=== PATIENT | male | born 1955 | race African-American/Black ===

== ENCOUNTER 2025-08-28 16:32 | Inpatient (IN) | payer MEDICARE, OTHER ==
[~2025-08-28] VITALS: Ht 170.2 cm; Wt 67.6 kg
[~2025-08-28 16:32] MED LIST: HYDR30CR79 TP
[2025-08-28] MEDS: CEFEPIME 1 GM in IV D5W 50 ML IV ONE (17:20)
[2025-08-28 17:31] LABS: RED BLOOD CELL COUNT(AUTO) 4.24 MIL/uL (4.5-6.0); RED CELL DISTRIBUTION WIDTH 15.5 % (11.5-15.0); WHITE BLOOD COUNT (AUTO) 7.0 K/uL (4.3-11.0)
[2025-08-28 17:33] LABS: PLATELET COUNT (AUTO) 186 K/uL (150-450)
[2025-08-28 17:43] LABS: CALCIUM, SERUM 8.8 mg/dL (8.5-10.1); CREATININE 1.6 mg/dL (0.6-1.3); SODIUM SERUM 140 mmol/L (136-145); UREA NITROGEN, BLOOD 22 mg/dL (7-18)
[2025-08-28 17:48] LABS: INR 1.05 (0.91-1.10)
[2025-08-28 17:49] LABS: ASPARTATE AMINOTRANSFERASE 13 U/L (15-37); TOTAL PROTEIN, SERUM 7.9 g/dL (6.4-8.2)
[2025-08-28] MEDS: VANCOMYCIN 1 GM in IV D5W 250 ML IV ONE (17:50)
[2025-08-28 17:53] LABS: LACTIC ACID 0.7 mmol/L (0.4-2.0)
[2025-08-28] MEDS ORDERED: L. A1TAB10 PO (18:43)
[2025-08-28] MEDS ORDERED: ACET-73 PO (18:43)
[2025-08-28] MEDS ORDERED: MULT-213 PO (18:43)
[2025-08-28] MEDS ORDERED: CARV25TA2 PO (18:43)
[2025-08-28] MEDS ORDERED: CHOL100062 PO (18:43)
[2025-08-28] MEDS ORDERED: CYAN500T15 PO (18:43)
[2025-08-28] MEDS ORDERED: AMIN30LI27 PO (18:43)
[2025-08-28] MEDS ORDERED: ACET325T53 PO (18:43)
[2025-08-28] MEDS ORDERED: LISI20TA30 PO (18:43)
[2025-08-28] MEDS ORDERED: FERR324T4 PO (18:43)
[2025-08-28] MEDS ORDERED: AMLO-213 PO (18:43)
[2025-08-28] MEDS ORDERED: LEVO25TA9 PO (18:43)
[2025-08-28] MEDS ORDERED: ASCO500T10 PO (18:43)
[2025-08-28] MEDS ORDERED: SENN-261 PO (18:43)
[2025-08-28 19:30] VITALS: O2SAT 97
[2025-08-28] MEDS ORDERED: Z GUARD REMEDY 4 OZ OINT TP PRN (20:00)
[2025-08-28] MEDS ORDERED: ACETAMINOPHEN 325 MG TABLET PO PRN (20:00)
[2025-08-28] MEDS ORDERED: DOSING PER PHARMACY-VANCOMYCIN IV XX PRN (20:00)
[2025-08-28] MEDS ORDERED: HYDROCODONE/APAP 5/325MG TABLET PO PRN (20:00)
[2025-08-28] MEDS ORDERED: ONDANSETRON HCL/PF 4 MG/2 ML VIAL IVP PRN (20:00)
[2025-08-28] MEDS ORDERED: DEXTROSE 50%-WATER 50 ML DISP.SYRIN IV PRN (22:30)
[2025-08-28 22:58] VITALS: BP 139/79; TEMP 98.1; O2SAT 100
[2025-08-28 23:33] LABS: APPEARANCE,URINE CLEAR (CLEAR); BLOOD, URINE NEGATIVE Ery/uL (NEGATIVE); LEUKOCYTE ESTERASE ,URINE NEGATIVE (NEGATIVE); NITRITE, URINE NEGATIVE (NEGATIVE); UGLUCOSE NEGATIVE (NEGATIVE)
[2025-08-28 23:44] LABS: ADD URINE CULTURE NO; CALCIUM OXALATE CRYSTALS,UR Rare /HPF (None Seen); SQUAMOUS EPITHELIAL CELL,UR 0-2 /HPF (None Seen)
[2025-08-29] MEDS: BLOOD SUGAR DIAGNOSTIC 1 EACH STRIP IN SCH (06:33)
[2025-08-29] MEDS: INSULIN REGULAR, HUMAN 100 UNIT/ML 3 ML VIAL SQ PRN (06:33)
[2025-08-29] MEDS: LEVOTHYROXINE SODIUM 25 MCG TABLET PO SCH (06:37)
[2025-08-29] MEDS: PANTOPRAZOLE 40 MG TABLET.DR PO SCH (06:37)
[2025-08-29 06:40] LABS: PLATELET COUNT (AUTO) 185 K/uL (150-450); RED BLOOD CELL COUNT(AUTO) 4.06 MIL/uL (4.5-6.0); RED CELL DISTRIBUTION WIDTH 15.6 % (11.5-15.0); WHITE BLOOD COUNT (AUTO) 7.5 K/uL (4.3-11.0)
[2025-08-29 07:47] LABS: CALCIUM, SERUM 9.2 mg/dL (8.5-10.1); CREATININE 1.2 mg/dL (0.6-1.3); PHOSPHORUS 2.8 mg/dL (2.5-4.9); SODIUM SERUM 142.0 mmol/L (136-145); UREA NITROGEN, BLOOD 20.0 mg/dL (7-18)
[2025-08-29 08:00] VITALS: BP 151/83; TEMP 97.9; O2SAT 99
[2025-08-29] MEDS: CEFTRIAXONE 2 G in IV D5W 100 ML IV SCH (08:23)
[2025-08-29 08:45] LABS: LDL 81.0 mg/dL (0-99)
[2025-08-29] MEDS: CARVEDILOL 12.5 MG TABLET PO SCH (09:00)
[2025-08-29] MEDS: MULTIVIT W/MINERALS 1 TAB TABLET PO SCH (09:51)
[2025-08-29] MEDS: SENNOSIDES 8.6 MG TABLET PO SCH (09:51)
[2025-08-29] MEDS: ASCORBIC ACID 500 MG TABLET PO SCH (09:51)
[2025-08-29] MEDS: CHOLECALCIFEROL 1,000 UNIT TABLET (VIT D3) PO SCH (09:51)
[2025-08-29] MEDS: FERROUS SULFATE (325 MG) 325 MG/TAB TABLET PO SCH (09:51)
[2025-08-29] MEDS: ACIDOPHILUS/BULGARICUS 1 EACH TAB.CHEW PO SCH (09:52)
[2025-08-29] MEDS: CYANOCOBALAMIN 500 MCG TABLET PO SCH (09:52)
[2025-08-29] MEDS: LISINOPRIL (20MG) 20 MG TABLET PO SCH (09:54)
[2025-08-29] MEDS: AMLODIPINE BESYLATE 10 MG TABLET PO SCH (09:55)
[2025-08-29] MEDS: PROSTAT (PYXIS) 30 ML UDC PO SCH (09:56)
[2025-08-29] MEDS: VANCOMYCIN HCL 1.25 GM in IV D5W 250 ML IV SCH (17:13)
[2025-08-29 20:00] VITALS: BP 114/69; TEMP 97.7; O2SAT 97
[2025-08-30 07:30] VITALS: BP 133/81; TEMP 98.2; O2SAT 98
[2025-08-30 16:00] VITALS: BP 112/75; TEMP 98.1; O2SAT 98
[2025-08-30 16:11] LABS: PLATELET COUNT (AUTO) 178 K/uL (150-450); RED BLOOD CELL COUNT(AUTO) 3.82 MIL/uL (4.5-6.0); RED CELL DISTRIBUTION WIDTH 15.3 % (11.5-15.0); WHITE BLOOD COUNT (AUTO) 5.5 K/uL (4.3-11.0)
[2025-08-30 16:38] LABS: ASPARTATE AMINOTRANSFERASE 8 U/L (15-37); CALCIUM, SERUM 8.5 mg/dL (8.5-10.1); CREATININE 1.6 mg/dL (0.6-1.3); PHOSPHORUS 3.7 mg/dL (2.5-4.9); SODIUM SERUM 139 mmol/L (136-145); TOTAL PROTEIN, SERUM 7.1 g/dL (6.4-8.2); UREA NITROGEN, BLOOD 22 mg/dL (7-18)
[2025-08-30 16:40] LABS: CREATINE KINASE, TOTAL 51 U/L (39-308)
[2025-08-30 20:00] VITALS: BP 112/73; TEMP 98.2; O2SAT 96
[2025-08-31 09:03] VITALS: BP 125/78; TEMP 98; O2SAT 100
[2025-08-31 10:07] LABS: PTH, INTACT 13 pg/mL (15-65)
[2025-08-31 16:16] VITALS: BP 118/83; TEMP 97.5; O2SAT 99
[2025-08-31 16:46] LABS: PLATELET COUNT (AUTO) 196 K/uL (150-450); RED BLOOD CELL COUNT(AUTO) 4.09 MIL/uL (4.5-6.0); RED CELL DISTRIBUTION WIDTH 15.7 % (11.5-15.0); WHITE BLOOD COUNT (AUTO) 6.9 K/uL (4.3-11.0)
[2025-08-31 17:00] VITALS: BP 108/63
[2025-08-31 17:03] LABS: ASPARTATE AMINOTRANSFERASE 10 U/L (15-37); CALCIUM, SERUM 8.8 mg/dL (8.5-10.1); CREATININE 1.8 mg/dL (0.6-1.3); PHOSPHORUS 3.1 mg/dL (2.5-4.9); SODIUM SERUM 141 mmol/L (136-145); TOTAL PROTEIN, SERUM 7.3 g/dL (6.4-8.2); UREA NITROGEN, BLOOD 24 mg/dL (7-18)
== END 2025-08-31 17:30 | DRG 300 ==
LOC: ER 16:39 → TELE1 19:13 → TELE 20:01 → MED 20:31
PROVIDERS: ADMIT Nurse Practitioner Family
DX: I87.313 Chronic venous hypertension (idiopathic) with ulcer of bilateral lower extremity (principal); E44.0 Moderate protein-calorie malnutrition; L97.812 Non-pressure chronic ulcer of other part of right lower leg with fat layer exposed; L97.828 Non-pressure chronic ulcer of other part of left lower leg with other specified severity; N17.9 Acute kidney failure, unspecified; E11.621 Type 2 diabetes mellitus with foot ulcer; K21.9 Gastro-esophageal reflux disease without esophagitis; N18.30 Chronic kidney disease, stage 3 unspecified; I13.10 Hypertensive heart and chronic kidney disease without heart failure, with stage 1 through stage 4 chronic kidney disease, or unspecified chronic kidney disease; D64.9 Anemia, unspecified; E03.9 Hypothyroidism, unspecified; M20.42 Other hammer toe(s) (acquired), left foot; M20.41 Other hammer toe(s) (acquired), right foot; E11.22 Type 2 diabetes mellitus with diabetic chronic kidney disease; L97.512 Non-pressure chronic ulcer of other part of right foot with fat layer exposed; E11.622 Type 2 diabetes mellitus with other skin ulcer; M24.571 Contracture, right ankle; M24.572 Contracture, left ankle; Z91.199 Patient's noncompliance with other medical treatment and regimen due to unspecified reason; E11.40 Type 2 diabetes mellitus with diabetic neuropathy, unspecified; I87.2 Venous insufficiency (chronic) (peripheral); E88.09 Other disorders of plasma-protein metabolism, not elsewhere classified; Z68.23 Body mass index [BMI] 23.0-23.9, adult; E83.89 Other disorders of mineral metabolism; E11.51 Type 2 diabetes mellitus with diabetic peripheral angiopathy without gangrene
CPT/HCPCS: 36415; 71045-TC; 80048-TC; 80053-TC; 80061-TC; 80076-TC; 80202-TC; 81001; 82550-TC; 82962-TC; 83605-TC; 83735-TC; 83970; 84100-TC; 84155; 84165; 85025-TC; 85730-TC; 87040-TC; 87081-TC; 87086-TC; 93970-TC; 97110-TC; 97530-TC; A4223; A6223; A6253; A6403; G0378; J0692; J0696; J1815; J3373; J7050; J7060